=== PATIENT | female | born 1995 | race Caucasian/White ===

== ENCOUNTER 2017-04-16 08:22 | Emergency (ER) | payer OTHER ==
[~2017-04-16] VITALS: Ht 165.1 cm; Wt 70.8 kg
[2017-04-16 08:36] VITALS: BP 108/70
--- NOTE | 2017-04-16 08:42 | NUR ---
PT AMBULATED TO BED 4.
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
--- NOTE | 2017-04-16 08:50 | NUR ---
ER MD DR. MOORE EVALUATING PT AT BEDSIDE.
[2017-04-16] MEDS ORDERED: cefTRIAXone 1,000 MG in LIDOCAINE 1% ED 2.1 ML IM ONE (08:55)
[2017-04-16] MEDS ORDERED: SULFAMETH/TRIMETH DS 800/160MG 1 TAB PO ONE (08:55)
[2017-04-16] MEDS ORDERED: IBUPROFEN 600 MG TAB PO ONE (08:55)
[2017-04-16] MEDS ORDERED: oxyCODONE/APAP 5/325 MG 1 TAB TAB PO ONE (08:55)
--- NOTE | 2017-04-16 09:05 | NUR ---
XRAY AT BEDSIDE.
--- NOTE | 2017-04-16 10:03 | NUR ---
PT APPEARS TO BE RESTING COMFORTABLY IN BED; RR EVEN/UNLABORED; AT BEDSIDE; WILL CONTINUE TO MONITOR.
[2017-04-16 10:38] VITALS: BP 104/73
--- NOTE | 2017-04-16 10:38 | NUR ---
Patient discharged with v/s stable. Written and verbal after care instructions given and explained. Patient alert, oriented and verbalized understanding of instructions. Ambulatory with CRUTCHES & steady gait. All questions addressed prior to discharge. ID band removed. Patient advised to follow up with PMD. Rx of PERCOCET 5MG-325MG TAB, BACTRIM DS 800MG-160MG TAB & KEFLEX 500MG CAP given. Patient educated on indication of medication including possible reaction and side effects. Opportunity to ask questions provided and answered.
--- NOTE | 2017-04-17 11:30 | NUR ---
ADDENDUM: RECIEVED CALL FROM JADEN OF [facility] REGARDING DISCRIPANCY ON LT. KNEE XR. REFERRED TO FOR DISPOSITION. NO FATHER TX.
== END 2017-04-16 10:38 | disposition home or self-care (01) ==
LOC: MED 08:22
DX: S82.092A Other fracture of left patella, initial encounter for closed fracture (principal); L03.116 Cellulitis of left lower limb; W20.8XXA Other cause of strike by thrown, projected or falling object, initial encounter; Y93.89 Activity, other specified; Y92.89 Other specified places as the place of occurrence of the external cause; Y99.8 Other external cause status
CPT/HCPCS: 29505; 73562; 99284; J0696; J2001; Q0092

== ENCOUNTER 2017-04-21 12:17 | Emergency (ER) | payer OTHER ==
[~2017-04-21] VITALS: Ht 160 cm; Wt 68.0 kg
[2017-04-21 12:37] VITALS: BP 143/97
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
--- NOTE | 2017-04-21 12:44 | NUR ---
Patient to bed 03.
--- NOTE | 2017-04-21 12:49 | NUR ---
Dr. Arroyo evaluating patient at bedside.
[2017-04-21 13:16] VITALS: BP 101/62
--- NOTE | 2017-04-21 13:16 | NUR ---
Patient discharged with v/s stable. Written and verbal after care instructions given and explained. Patient alert, oriented and verbalized understanding of instructions. Carried with steady gait. All questions addressed prior to discharge. ID band removed. Patient advised to follow up with PMD. Rx of MOTRIN 600MG TAB given. Patient educated on indication of medication including possible reaction and side effects. Opportunity to ask questions provided and answered.
== END 2017-04-21 13:16 | disposition home or self-care (01) ==
LOC: MED 12:17
CPT/HCPCS: 99283

== ENCOUNTER 2019-02-08 20:38 | Emergency (ER) | payer MEDICAID, OTHER ==
[~2019-02-08] VITALS: Ht 160 cm; Wt 70.3 kg
[2019-02-08 20:44] VITALS: BP 134/88
--- NOTE | 2019-02-08 20:44 | NUR ---
PT TAKEN TO BED 5
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
--- NOTE | 2019-02-08 21:01 | NUR ---
REPORT GIVEN TO JAMIE PETERSON
--- NOTE | 2019-02-08 21:01 | NUR ---
REPORT RECEIVED FROM KENNY PETERSON
--- NOTE | 2019-02-08 21:49 | NUR ---
Dr. Hill evaluating patient at bedside.
[2019-02-08 21:59] VITALS: BP 135/76
--- NOTE | 2019-02-08 21:59 | NUR ---
Patient discharged with v/s stable. Written and verbal after care instructions given and explained. Patient alert, oriented and verbalized understanding of instructions. Ambulatory with steady gait. All questions addressed prior to discharge. ID band removed. Patient advised to follow up with PMD. Opportunity to ask questions provided and answered.
== END 2019-02-08 21:59 | disposition home or self-care (01) ==
LOC: MED 20:38
DX: S61.211A Laceration without foreign body of left index finger without damage to nail, initial encounter (principal); Z90.49 Acquired absence of other specified parts of digestive tract; X58.XXXA Exposure to other specified factors, initial encounter; Y93.89 Activity, other specified; Y92.89 Other specified places as the place of occurrence of the external cause; Y99.8 Other external cause status
CPT/HCPCS: 12001; 99283

== ENCOUNTER 2019-07-16 23:06 | Emergency (ER) | payer MEDICAID ==
[~2019-07-16] VITALS: Ht 160 cm; Wt 63.5 kg
[2019-07-16 23:23] VITALS: BP 145/87
[2019-07-17] MEDS: KETOROLAC 60 MG/2 ML VIAL IM ONE (02:19)
[2019-07-17 02:33] VITALS: BP 131/67
== END 2019-07-17 02:33 | disposition home or self-care (01) ==
LOC: MED 23:06
DX: G56.01 Carpal tunnel syndrome, right upper limb (principal); F17.200 Nicotine dependence, unspecified, uncomplicated; Z90.49 Acquired absence of other specified parts of digestive tract; Z98.890 Other specified postprocedural states
CPT/HCPCS: 29125; 96372; 99283; J1885